=== PATIENT | male | born 1985 | race Caucasian/White ===

== ENCOUNTER 2017-01-03 09:24 | Emergency (ER) | payer BC ==
--- NOTE | ~2017-01-03 | US85 ---
[facility] A Service [facility] RADIOLOGY TEXT RESULTS PATIENT: BAL MANSFIELD LOCATION: SED : 81 UNIT #: [id number] AGE: [address]: Rich Arciniega MD SEX: M ORDER DR: [id number] [place] [id number] MR#: [id number] Acc #: [id number] NAME: BAL MANSFIELD. : 1985 SEX: M STUDY DATE/TIME: 01/03/2017 10:37 UNIT: SED ROOM: STUDY DESCRIPTION: [facility] [employer] Attending Physician: Rich Arciniega M.D. Ordering Physician: Rich Arciniega M.D. Primary Care Physician: Primary Care Physician No MEDICAL IMAGING REPORT This report is preliminary unless electronic signature is present. EXAM Unilateral right lower extremity venous Doppler, 01/03/2017 HISTORY Right leg pain for 12 hours. PROCEDURE Lott-scale imaging, color-Doppler flow imaging and Doppler waveform analysis. TECHNIQUE Venous ultrasound examination of the right lower extremity was performed using grayscale, spectral Doppler and color flow Doppler imaging. FINDINGS The examination is negative. There is no evidence of right lower extremity deep venous thrombus from the groin to the lower calf. Visualized greater saphenous vein is also patent. IMPRESSION Negative examination. No evidence of right lower extremity deep venous thrombosis. Dictated by... Shaw Hernández M.D. THIS IS AN ELECTRONICALLY VERIFIED REPORT Shaw Hernández M.D. at 01/04/2017 9:50 AM VALERIE/kasandra TD: 01/03/2017 13:27 JOB #: [id number] [facility] A Service [facility] RADIOLOGY TEXT RESULTS PATIENT: BAL MANSFIELD LOCATION: SED : 83 UNIT #: [id number] AGE: [address]: Rich Arciniega MD SEX: M ORDER DR: MEDICAL IMAGING REPORT Page 1 of 1
[~2017-01-03 09:24] MED LIST: ATARAX; CELEXA; COZAAR; DESYREL50 MG; FLOMAX0.4 M1; LIPITOR; NABUMETONE; NORCO 5/325 TAB1 TAB; TYLENOL325 M1 PO
== END 2017-01-03 12:03 | disposition home or self-care (01) ==
LOC: SED 09:24
DX: S86.111A Strain of other muscle(s) and tendon(s) of posterior muscle group at lower leg level, right leg, initial encounter (principal); I10 Essential (primary) hypertension; E78.5 Hyperlipidemia, unspecified; F31.9 Bipolar disorder, unspecified; W23.0XXA Caught, crushed, jammed, or pinched between moving objects, initial encounter; Y92.009 Unspecified place in unspecified non-institutional (private) residence as the place of occurrence of the external cause
CPT/HCPCS: 93971; 99284